=== PATIENT | female | born 1975 | race Caucasian/White ===

== ENCOUNTER 2023-08-12 22:15 | Emergency (ER) | payer OTHER ==
[~2023-08-12] VITALS: Ht 154.9 cm; Wt 82.6 kg
[2023-08-12 22:37] VITALS: BP 134/75; PULSE 65; RESP 16; TEMP 97; O2SAT 97
[2023-08-12 23:23] LABS: BASOPHILS # (AUTO) 0.1 K/uL (0.00-0.22); BASOPHILS % (AUTO) 0.9 % (0.0-2.0); EOSINOPHILS # (AUTO) 0.2 K/uL (0-0.4); EOSINOPHILS % (AUTO) 1.9 % (0.0-4.0); HEMATOCRIT 37.7 % (36-48); HEMOGLOBIN 13.4 g/dL (12.0-16.0); LYMPHOCYTES % (AUTO) 38.7 % (20.5-51.1); MEAN CORPUSCULAR HEMOGLOBIN 31 pg (27-31); MEAN CORPUSCULAR HGB CONC 36 g/dL (33-37); MEAN CORPUSCULAR VOLUME 86.8 fL (80-94); MONOCYTES # (AUTO) 0.5 K/uL (0.8-1.0); MONOCYTES % (AUTO) 6.8 % (1.7-9.3); NEUTROPHILS # (AUTO) 4.1 K/uL (1.8-7.7); NEUTROPHILS % (AUTO) 51.7 % (42.2-75.2); PLATELET COUNT (AUTO) 207 K/uL (140-450); RED BLOOD CELL COUNT(AUTO) 4.34 MIL/uL (4.20-5.40); RED CELL DISTRIBUTION WIDTH 13.8 % (11.6-13.7); WHITE BLOOD COUNT (AUTO) 7.8 K/uL (4.8-10.8)
[2023-08-12 23:28] LABS: APPEARANCE,URINE CLEAR (CLEAR); BILIRUBIN,URINE NEGATIVE (NEGATIVE); BLOOD, URINE NEGATIVE (NEGATIVE); COLOR,URINE YELLOW (YELLOW); LEUKOCYTE ESTERASE ,URINE NEGATIVE (NEGATIVE); NITRITE, URINE NEGATIVE (NEGATIVE); PROTEIN,URINE NEGATIVE (NEGATIVE); UGLUCOSE NEGATIVE (NEGATIVE); UROBILINOGEN,URINE 0.2 EU/dL (0.2 - 1)
[2023-08-12 23:52] LABS: ANION GAP 14.9 (8-16); CARBON DIOXIDE 27.3 mmol/L (21-32); POTASSIUM 4.2 mmol/L (3.5-5.1)
[2023-08-12 23:53] LABS: CALCIUM 9.5 mg/dL (8.5-10.1); TOTAL BILIRUBIN 0.5 mg/dL (0.0-1.0); TOTAL PROTEIN, SERUM 8.4 g/dL (6.4-8.2)
[2023-08-12 23:55] LABS: CREATININE 0.8 mg/dL (0.6-1.3)
[2023-08-12 23:56] LABS: ALBUMIN 3.6 g/dL (3.4-5.0); MAGNESIUM 1.9 mg/dL (1.8-2.4); PHOSPHORUS 4.6 mg/dL (2.5-4.9)
[2023-08-13] MEDS: NACL 0.9% 1,000 ML IV ONE (01:00)
[2023-08-13] MEDS: DEXAMETHASONE 4 MG/ML VIAL IVP ONE (01:10)
[2023-08-13] MEDS: diphenhydrAMINE 50 MG/ML VIAL IVP ONE (01:10)
[2023-08-13] MEDS: METOCLOPRAMIDE 10 MG/2 ML INJ VIAL IVP ONE (01:15)
[2023-08-13] MEDS: ACETAMINOPHEN EXTRA STRENGTH 500 MG TAB PO ONE (01:15)
[2023-08-13] MEDS ORDERED: ACET-8001 PO (01:48)
[2023-08-13] MEDS ORDERED: IBUP-2213 PO (01:48)
[2023-08-13 02:16] VITALS: BP 129/70; PULSE 68; RESP 16; TEMP 97; O2SAT 98
== END 2023-08-13 02:16 | disposition home or self-care (01) ==
LOC: MED 22:15
DX: G43.909 Migraine, unspecified, not intractable, without status migrainosus (principal); Z98.890 Other specified postprocedural states; Z79.899 Other long term (current) drug therapy; Z88.1 Allergy status to other antibiotic agents
CPT/HCPCS: 36415; 80053; 81003; 83735; 84100; 85025; 96361; 96374; 96375; 99284; J1100; J1200; J2765; J7030